=== PATIENT | male | born 1970 | race Caucasian/White ===

== ENCOUNTER → 2016-07-17 | Outpatient (CLI) | payer BC ==
[~2016-07-17] MED LIST: ACET-1256 PO; ASPEC325 PO; HYDR-5688 PO; OXYC-57 PO
--- NOTE | 2016-07-17 13:28 | DIAGNOSTIC IMAGING REPORT ---
MRI THE RIGHT THIGH NO CONTRAST CLINICAL HISTORY: Right thigh hematoma. Follow-up examination. COMPARISON STUDY: 04/09/2016 FINDINGS: Imaging was performed in sagittal, coronal, and axial planes. Within the posterior medial thigh extending to the level of the knee there is a circumscribed subcutaneous mass measuring 6.5 x 3.7 x 9.3 cm. This appears smaller than on the preceding study. The mass is slightly complex, and likely represents a resolving hematoma. There are no areas of marrow edema to indicate an occult fracture. There is no evidence of an intramuscular hematoma. IMPRESSION: Interval decrease in the size of the subcutaneous soft tissue mass currently measuring 6.5 x 3.7 x 9.3 cm. This appears more complex than on the prior study, and likely represents a resolving hematoma. As was previously stated, it is not possible to exclude superimposed infection. Electronically signed by: Nestor García M.D. 07/17/2016 1:27 PM Dictated Date/Time: 07/17/2016 1:21 PM
== END | disposition home or self-care (01) ==
LOC: C.MRIBC 12:12
PROVIDERS: ATTEND Orthopaedic Surgery
DX: R22.41 Localized swelling, mass and lump, right lower limb (principal)

== ENCOUNTER 2016-08-13 08:49 | Observation (INO) | payer BC ==
[2016-07-31 08:00] VITALS: BMI 34.0
--- NOTE | 2016-07-31 08:40 | PAT Medication Instructions ---
Service Date Jul 31, 2016. Current Home Medication List Acetaminophen (Tylenol), 1 TAB PO Q8 PRN for Pain Medication Instructions For Your Scheduled Surgery - Take the following medications the morning of surgery with a sip of water OTHERWISE NOTHING TO EAT OR DRINK AFTER MIDNIGHT: Tylenol (may take if needed up to 4 hours prior to surgery) If you have any questions please call us at [phone] or [phone] or [phone]
[2016-07-31 09:10] LABS: BASO ABS # 0.06 K/uL (0-0.2); COMPLETE YES; EOS % 3.1 %; HEMATOCRIT 42.8 % (42-52); IG% 1.5 %; LYMPH % 23.1 %; MEAN CELL VOLUME 86.6 fL (80-100); MEAN CORPUSCULAR HEMOGLOBIN 29.8 pg (25-34); MEAN CORPUSCULAR HGB CONC 34.3 g/dl (32-36); MONO % 7.3 %; PLATELET COUNT 226 K/uL (130-400); RED BLOOD COUNT 4.94 M/uL (4.7-6.1); WHITE BLOOD COUNT 6.06 K/uL (4.8-10.8)
[2016-07-31 09:29] LABS: BLOOD UREA NITROGEN 13 mg/dl (7-18); BUN/CREATININE RATIO 13.6 (10-20); C-REACTIVE PROTEIN < 0.29 mg/dl (0-0.29); CARBON DIOXIDE 27 mmol/L (21-32); CHLORIDE 107 mmol/L (98-107); CREATININE 0.92 mg/dl (0.60-1.40); GLUCOSE 97 mg/dl (70-99); POTASSIUM 4.5 mmol/L (3.5-5.1); SODIUM 142 mmol/L (136-145)
--- NOTE | 2016-08-08 16:01 | HISTORY & PHYSICAL EXAMINATION ---
DATE OF ADMISSION: 08/13/2016 CHIEF COMPLAINT: Recurrent right thigh/knee mass/hematoma. 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 He was seen in the Emergency Room and saw Dr. Retana. He had a couple ultrasounds and showed a large hematoma in his leg. He saw Dr. Braxton who tried to aspirate it but was unsuccessful. He eventually underwent an open I\T\D at the surgical center 04/15/2016. He had drain put in for a couple days. The mass has recurred. He continues to have recurrent fluid collections. It has been unresponsive to recurrent aspirations. He is referred to me for an attempt a more definitive treatment/excision. It does bother him. It gets swollen. He just would like to have this fixed. PAST MEDICAL HISTORY: Noncontributory. He did have a negative cardiac workup for possible heart issue before his previous surgery PAST SURGICAL HISTORY: Include: 1. Left arm surgery. 2. Right thigh hematoma I\T\D 04/15/2016. ALLERGIES: None. CURRENT MEDICINES: 1. Aleve. 2. Tylenol. 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 FAMILY HISTORY: Noncontributory. REVIEW OF SYSTEMS: Negative for diabetes, neurological problems, vascular problems, bleeding disorders. Denies any chest pain or shortness of breath. No history of DVT or PE. PHYSICAL EXAMINATION: GENERAL: Reveals a healthy, pleasant, middle-aged male. He looks to be in excellent health. HEAD, EYES, EARS, NOSE, AND THROAT EXAMINATION: Benign. NECK: Supple. No lymphadenopathy. LUNGS: Clear to auscultation. HEART: Regular rate and rhythm. ABDOMEN: Soft, nontender, nondistended. EXTREMITY EXAMINATION: Grossly neurovascularly intact except as follows: Examination of right leg reveals a large tense fluid collection over the posteromedial side of his distal thigh and proximal knee area. He has got a well-healed incision about 5 cm in length. The mass measures about 15 x 10 cm. No knee effusion. MRI: MRI is reviewed. It shows a large fluid collection which looks to be really maintained in mostly the subcutaneous tissues of his knee. It is in the posterior side of his leg and lower thigh area. It looks to be in the subcutaneous tissues. 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 He has failed conservative and even 1 attempt at operative treatment. PLAN: We are going to take him to the operating room and do an open I\T\D. We will excise the capsule to this and maybe put a wound VAC on. The risks and benefits of this procedure were explained to the patient including but not limited to DVT, PE, , infection, neurological injury, vascular injury, bleeding problem, pain, limited range of motion, stiffness, failure to relieve symptoms, incomplete relief of symptoms, need for further surgery in the future, reoccurrence, etc. The patient understands and desires to proceed. Informed consent was obtained. We will keep him overnight. He should be able to be discharged the following day. Will determine at the time of surgery whether the wound VAC is needed. ALEXANDER
[~2016-08-13] VITALS: Ht 185.4 cm; Wt 116.8 kg
[2016-08-13] VITALS (7 sets, daily range): BP systolic 120–159; BP diastolic 73–97; PULSE 48–89; TEMP 36.3–36.9; O2SAT 90–97; Ht 185.4 cm; Wt 116.8 kg
[~2016-08-13 08:49] MED LIST changes: -ASPEC325 PO; +CEFAZOLIN 2000 MG/60 ML D5W IV SCH; -HYDR-5688 PO; +LACTATED RINGER'S 1000ML 1,000 ML IV SCH; -OXYC-57 PO
[2016-08-13] MEDS ORDERED: PROPOFOL IV EMULSION 10 MG/ML 20 ML VIAL IV ONE (09:09)
[2016-08-13] MEDS ORDERED: LIDOCAINE HCL 2% 2 ML VIAL (20MG/ML) ONE (09:09)
[2016-08-13] MEDS ORDERED: FENTANYL CITRATE INJ 50 MCG/1 ML 2 ML VIAL ONE (09:12)
[2016-08-13] MEDS ORDERED: MIDAZOLAM HCL 1 MG/ML 2ML VIAL ONE (09:12)
[2016-08-13] MEDS ORDERED: NURSING VERBAL MED ORDER ONE (09:30)
--- NOTE | 2016-08-13 09:49 | History & Physical Bridge Note ---
H&P Re-Evaluation Bridge Note: I have examined the patient, reviewed the History & Physical and in the interval since the performance of the History & Physical I have noted the following changes of clinical significance: No changes noted
[2016-08-13] MEDS ORDERED: LACTATED RINGER'S 1000ML 1,000 ML IV PRN (09:53)
[2016-08-13] MEDS ORDERED: FENTANYL CITRATE INJ 50 MCG/1 ML 2 ML VIAL IV PRN (10:00)
[2016-08-13] MEDS ORDERED: KETOROLAC TROMETHAMINE 30 MG/ML VIAL IV. PRN (10:00)
[2016-08-13] MEDS ORDERED: ONDANSETRON INJ 2 MG/ML 2 ML VIAL IV PRN ×2 (10:00→12:00)
[2016-08-13] MEDS ORDERED: BACITRACIN 50000 UNIT VIAL ONE (10:18)
[2016-08-13] MEDS ORDERED: BUPIVACAINE/EPINEPHRINE 0.5% MPF 1:200,000 30 ML VIAL ONE (10:19)
[2016-08-13] MEDS ORDERED: DEXAMETHASONE SOD INJ 4 MG/ML VIAL ONE (10:42)
[2016-08-13] MEDS ORDERED: ONDANSETRON INJ 2 MG/ML 2 ML VIAL ONE (10:42)
[2016-08-13] MEDS ORDERED: GLYCOPYRROLATE INJ 0.2 MG/ML VIAL ONE (11:02)
--- NOTE | 2016-08-13 11:50 | [facility] Post Operative Brief Note ---
Immediate Operative Summary Operative Date Aug 13, 2016. Pre-Operative Diagnosis Recurrent Right Thigh Mass/Hematoma/Seroma Post-Operative Diagnosis Recurrent Right Thigh Mass/Hematoma/Seroma Procedure(s) Performed I and D of right thigh Hematoma Excision of thigh Seroma Wound VAC Application Surgeon Dr. De Leon Surgery Manager Surgeon(s) JEFF Segura Estimated Blood Loss 20 cc Findings Recurrent thigh hematoma/seroma Fluids (cc crystalloids) 1000 cc Specimens none per surgeon Drains Wound VAC Anesthesia General Complication(s) None Disposition Recovery Room / PACU
[2016-08-13] MEDS ORDERED: BISACODYL 10 MG SUPP PR PRN (12:00)
[2016-08-13] MEDS ORDERED: SOD PHOSPHATE/SOD BIPHOSPHATE ENEMA 132 ML BTL PR PRN (12:00)
[2016-08-13] MEDS ORDERED: ZOLPIDEM TARTRATE 5 MG TAB PO PRN (12:00)
[2016-08-13] MEDS ORDERED: DiphenhydrAMINE HCL 50 MG/ML VIAL IV PRN (12:00)
[2016-08-13] MEDS ORDERED: METOCLOPRAMIDE HCL INJ 5 MG/ML 2 ML VIAL IV PRN (12:00)
[2016-08-13] MEDS ORDERED: MoRPHine SULFATE 2 MG/ML CARP IV PRN (12:00)
[2016-08-13] MEDS ORDERED: MAGNESIUM HYDROXIDE SUSP 30 ML UDC PO PRN (12:00)
[2016-08-13] MEDS ORDERED: OXYCODONE HCL IR 5 MG TAB (IMMEDIATE RELEASE) PO PRN (12:00)
[2016-08-13] MEDS ORDERED: ALUMINUM/MAGNESIUM/SIMETH (MAALOX MAX) 30 ML UDC PO PRN (12:00)
--- NOTE | 2016-08-13 12:32 | Anesthesiology Progress Note ---
Anesthesia Post Op Note Date & Time Aug 13, 2016 at 12:32 Vital Signs Pain Intensity: 2 Vital Signs Past 12 Hours Date Time Temp Pulse Resp B/P Pulse Ox O2 Delivery O2 Flow Rate FiO2 08/13/16 12:14 61 16 122/79 99 08/13/16 12:14 60 16 08/13/16 12:09 65 16 143/82 99 08/13/16 12:09 66 16 08/13/16 12:04 69 13 125/84 100 08/13/16 12:04 70 13 08/13/16 11:59 70 22 128/92 99 08/13/16 11:59 70 22 08/13/16 11:54 36.2 72 18 136/84 97 Mask 10 08/13/16 11:54 71 19 08/13/16 11:54 70 19 127/82 100 08/13/16 09:05 36.5 65 20 159/97 97 Room Air Notes Mental Status: alert / awake / arousable, participated in evaluation Pt Amnestic to Procedure: Yes Nausea / Vomiting: adequately controlled Pain: adequately controlled Airway Patency, RR, SpO2: stable & adequate BP & HR: stable & adequate Hydration State: stable & adequate Anesthetic Complications: no major complications apparent Pt doing well.
[2016-08-13] MEDS ORDERED: IV FLUIDS COMPLETED PRN (12:45)
--- NOTE | 2016-08-13 13:32 | OPERATIVE REPORT ---
DATE OF OPERATION: 08/13/2016 SURGEON: Aldair De Leon MD. SOIL SAMPLER: JEFF Gonzalez. PREOPERATIVE DIAGNOSIS: Right recurrent posterior thigh hematoma/seroma. POSTOPERATIVE DIAGNOSIS: Same. PROCEDURES PERFORMED: 1. I\T\D of a right recurrent thigh hematoma/seroma. 2. Excision of right thigh seroma/hematoma. 3. Application of wound VAC to the right distal thigh. COMPLICATIONS: None. ESTIMATED BLOOD LOSS: 20 mL. FLUID REPLACEMENT: 1000 mL crystalloid fluid replacement. TOURNIQUET TIME: 29 minutes at 300 mmHg. 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 He had acute onset of swelling and bruising. He had hematoma and underwent an I\T\D several weeks later by Dr. Braxton. This has recurred and continues to recur despite multiple aspirations. MRI revealed a well loculated fluid collection in the posteromedial side of his thigh with a fairly thick capsule to it. The patient was indicated for excision and possible application of a wound VAC. OPERATIVE FINDINGS: Operative findings revealed a large fluid filled mass in the posteromedial side of his right thigh. It is probably about 15 cm x 5 cm. It did have a very thick capsule to it. It was filled with serosanguineous fluid. OPERATIVE PROCEDURE: The patient taken to the operating room, identified and placed on the operating table in supine position. All contact areas were appropriately padded. IV antibiotics were provided by anesthesia team. General anesthetic was implemented. A right thigh tourniquet was then placed. The right lower extremity was then prepped and draped in the usual sterile fashion. The right leg was elevated and exsanguinated using an Esmarch and tourniquet was placed at 300 mmHg. An incision in the posteromedial side of his thigh was then made over this obvious hematoma/seroma collection. I used the previous incision and extended it both proximally and distally. Sharp dissection was carried through the subcutaneous tissues down to the capsule. I circumferentially dissected around the capsule. We did enter it at one spot superiorly. I dissected this around and excised this off the posterior aspect of the musculature and fascia. It did not go deep into the tissues. There was one area we punctured through the skin just slightly in the posterior aspect of his leg. This was excised and sent off. There was nothing pathological in appearance to it, so we did not send it off for pathology. Once this was complete, I irrigated the wound extensively. I injected locally with 30 mL of 0.5% Marcaine with epinephrine. I did not inject the posterior flap as I wanted to make sure there was no risk for avascularity. The tourniquet was let down for a tourniquet time of 29 minutes. Hemostasis was assured with use of electrocautery. I then irrigated the wound extensively. I then closed the distal aspect of the wound. We left approximately 5 cm open and packed it with a sponge from the wound VAC. Wound VAC was then applied. The patient was then placed in a knee immobilizer. He was brought out of general anesthesia and transferred to the recovery room in stable condition. The patient tolerated the procedure well with no complications. All needle and sponge counts were correct at the end of the operation. I attest to the content of the Intraoperative Record and any orders documented therein. Any exceptio ns are noted below.
[2016-08-13] MEDS ORDERED: ACETAMINOPHEN 500 MG TAB PO ONE (14:14)
[2016-08-13] MEDS: ACETAMINOPHEN 500 MG TAB PO SCH ×2 (14:18→20:56)
[2016-08-13] MEDS: D5W AND 1/2NSS + 20MEQ KCL 1,000 ML IV SCH ×2 (14:18→20:56)
[2016-08-13] MEDS: CEFAZOLIN IV 2,000 MG in DEXTROSE 5% 50ML 50 ML IV SCH (17:22)
[2016-08-13] MEDS: ASPIRIN 325 MG ECTAB PO SCH (20:56)
[2016-08-13] MEDS ORDERED: ASPEC325 PO (21:35)
[2016-08-13] MEDS ORDERED: OXYC-57 PO (21:35)
--- NOTE | 2016-08-13 21:38 | Discharge Instructions ---
Discharge Instructions Admission Reason for Admission: Hematoma of Right Thigh; Crushing Injury of Lower Discharge Discharge Diagnosis / Problem: Right Thigh Hematoma Discharge Goals Goal(s): Decrease discomfort, Improve function, Increase independence, Improve disease control, Therapeutic intervention Activity Recommendations Activity Limitations: per Instructions/Follow-up section (knee immobilizer for 2 weeks. Avoid knee bending.) . Instructions / Follow-Up Instructions / Follow-Up Keep dressing/wound VAC in place May Weight-bear as tolerated in knee immobilizer Limit any knee bending for 2 weeks Current Hospital Diet Patient's current hospital diet: Regular Diet Discharge Diet Recommended Diet: Regular Diet Procedures Procedures Performed: I and D of right thigh Hematoma Excision of thigh Seroma Wound VAC Application Pending Studies Studies pending at discharge: no Medical Emergencies . Who to Call and When: Medical Emergencies: If at any time you feel your situation is an emergency, please call 911 immediately. . Non-Emergent Contact Non-Emergency issues call your: Surgeon . "Provider Documentation" section prepared by Aldair De Leon. VTE Core Measure Inpt VTE Proph given/why not?: Other Anticoagulation, T.E.D. Stockings, SCD's
[2016-08-14] MEDS: CEFAZOLIN IV 2,000 MG in DEXTROSE 5% 50ML 50 ML IV SCH (01:22)
[2016-08-14 03:07] VITALS: BP 142/77; PULSE 69; TEMP 36.8; O2SAT 95
[2016-08-14] MEDS: D5W AND 1/2NSS + 20MEQ KCL 1,000 ML IV SCH ×2 (04:15→09:30)
[2016-08-14] MEDS: ACETAMINOPHEN 500 MG TAB PO SCH ×3 (05:34→20:20)
[2016-08-14 06:53] VITALS: BP 163/77; PULSE 71; TEMP 36.5; O2SAT 93
[2016-08-14 07:27] VITALS: BP 129/86
--- NOTE | 2016-08-14 07:58 | PROGRESS NOTE ---
DATE: 08/14/2016 SUBJECTIVE: 46-year-old gentleman postop day 1 from I\T\D and placement of a wound VAC for a right recurrent thigh hematoma. He is doing well. No particular pain. Anxious to go home. OBJECTIVE: VITAL SIGNS: Temperature 36.5. Vital signs stable. PHYSICAL EXAMINATION: GENERAL: Reveals a healthy, pleasant, middle-aged male. He is lying in bed and looks comfortable. EXTREMITIES: Examination of the right leg reveals the leg to be well aligned. Knee immobilizer was placed. He can dorsiflex and plantarflex his foot appropriately. He is neurologically intact. ASSESSMENT: 46-year-old gentleman postop day 1 from right thigh hematoma and excision and placement of a wound VAC, doing pretty well. His pain is controlled. He is neurologically intact. PLAN: 1. DVT prophylaxis including thigh-high TEDS, SCDs, and aspirin twice a day. 2. Wound VAC. We will have the wound VAC nurse check his wound VAC today and if things look good we will discharge him. He will likely need Wound VAC changed tomorrow. 3. Pain control. Doing well with current pain regimen. 4. Disposition: Plan to discharge to home later today.
[2016-08-14] MEDS ORDERED: PANTOprazole SOD 40 MG TAB PO SCH (09:00)
[2016-08-14] MEDS ORDERED: MULTIVITAMIN TAB PO SCH (09:00)
[2016-08-14] MEDS: ASPIRIN 325 MG ECTAB PO SCH ×2 (09:00→20:19)
[2016-08-14 12:00] VITALS: BP 127/80; PULSE 64; TEMP 36.9; O2SAT 97
[2016-08-14 15:27] VITALS: BP 134/83; PULSE 75; TEMP 36.9; O2SAT 96
[2016-08-14 20:50] VITALS: BP 134/83; PULSE 75; TEMP 36.9; O2SAT 96
--- NOTE | 2016-08-27 15:31 | DISCHARGE SUMMARY ---
ADMITTING PHYSICIAN AND SURGEON: Dr. De Leon. ADMITTING DIAGNOSIS: Right recurrent posterior thigh hematoma/seroma. PROCEDURES PERFORMED: 1. I\T\D of a recurrent hematoma/seroma. 2. Excision of a right thigh seroma/hematoma. 3. Application of wound VAC to the right thigh. SECONDARY DIAGNOSIS: Noncontributory. CONSULTS: None obtained. HISTORY AND PHYSICAL EXAMINATION: Well documented in the patient's chart. HOSPITAL COURSE: The patient was admitted on 08/13/2016 and underwent I\T\D of his thigh and application of a wound VAC. He tolerated the procedure well. There were no complications. He was transferred to PACU postoperatively and later to the orthopedic floor for further care. He was given Ancef for antibiotic prophylaxis, ANDRE stockings, SCDs and aspirin for DVT prophylaxis. Vital signs were monitored during his hospital stay and remained stable. There were no complications. By postoperative day #1, he was tolerating a general diet. Pain was controlled with oral pain medicine. He had no signs or symptoms of deep vein thrombosis. On postop day #1, he was then discharged home, set up with home health services, and given printed discharge instructions including prescriptions for aspirin 325 mg b.i.d. and Percocet. He will continue his home medicines, which include only Tylenol as needed. He was instructed to wear the knee immobilizer for 2 weeks, avoiding bending of his knee, keep the dressing and wound VAC in place, and weightbear as tolerated in the knee immobilizer. He was given instructions on when to follow up regarding changing of the wound VAC. He will follow up with Dr. De Leon in approximately 12-14 days or sooner if there are problems or concerns.
== END 2016-08-14 21:30 | disposition home health service (06) ==
LOC: ENRESERVDT → ENRESERVTM → C.ACU 08:49 → C.3E 13:47
PROVIDERS: ADMIT Orthopaedic Surgery Sports Medicine; ATTEND Orthopaedic Surgery Sports Medicine
DX: S70.11XA Contusion of right thigh, initial encounter (principal); W30.89XA Contact with other specified agricultural machinery, initial encounter; Y92.79 Other farm location as the place of occurrence of the external cause